=== PATIENT | male | born 1955 | race Caucasian/White ===

== ENCOUNTER 2017-09-16 15:32 | Inpatient (IN) | payer BC ==
[2017-09-16 22:37] VITALS: BMI 26.6
--- NOTE | 2017-09-16 23:44 | CP.PCM.HP ---
History of Present Illness - History of Present Illness History of Present Illness: PCP: Dr Molina Chief Complaint: right side weakness HPI: The hx is obtained from the patient and the Medicl recrds. He is a 62 years old male with hx of DM II, HTN, HLD who was admitted at [facility] on 09/12/17 and dx with Acute CVA. He is sent to the [facility] for Continued treatment and Physical Therapy. He refers no significant improvement in the right side limb weakness, still with some motor aphasia. No headache, dizziness, fever, nausea, vomits. PMH: DM II; HLD; HTN; Hypothyroidism PSH: Denies SH: Active Smoker 1PPD; No ETOH: No illegal drug use; Live with family FH: States: No known family hx Allergies: NKDA Medication: Reviewed Present on Admission - Present on Admission Any Indicators Present on Admission: No History of DVT/PE: No History of Uncontrolled Diabetes: No Urinary Catheter: No Decubitus Ulcer Present: No Review of Systems - Constitutional Constitutional: absent: Chills, Fever, Headache - EENT Eyes: Requires Corrective Lenses. absent: Floaters, Photophobia, Sees Flashes Ears: absent: Decreased Hearing, Ear Discharge Nose/Mouth/Throat: absent: Epistaxis, Nasal Congestion, Sinus Pain, Sinus Pressure - Cardiovascular Cardiovascular: absent: Chest Pain, Dyspnea, Edema, Orthopnea - Respiratory Respiratory: absent: Cough, Wheezing, Stridor - Gastrointestinal Gastrointestinal: absent: Constipation, Diarrhea, Nausea, Vomiting - Genitourinary Genitourinary: absent: Dysuria, Flank Pain, Hematuria, Urinary Frequency - Musculoskeletal Musculoskeletal: Muscle Weakness. absent: Arthralgias, Back Pain, Stiffness - Integumentary Integumentary: absent: Pruritus, Rash, Skin Ulcer, Striae, Swelling - Neurological Neurological: Focal Weakness, Weakness. absent: Confusion, Dizziness, Headaches - Psychiatric Psychiatric: absent: Anxiety, Depression, Panic Attacks - Endocrine Endocrine: absent: Palpitations, Polydipsia, Polyphagia, Polyuria - Hematologic/Lymphatic Hematologic: absent: Easy Bleeding, Easy Bruising Past Patient History - Past Social History Smoking Status: Current Some Days Smoker Chewing Tobacco Use: No Cigar Use: No Alcohol: None Drugs: Denies Home Situation {Lives}: With Family - CARDIAC Hx Hypercholesterolemia: Yes Hx Hypertension: Yes - PULMONARY Hx Respiratory Disorders: No - NEUROLOGICAL HX Cerebrovascular Accident: Yes - HEENT Hx HEENT Problems: No - RENAL Hx Chronic Kidney Disease: No - ENDOCRINE/METABOLIC Hx Diabetes Mellitus Type 2: Yes Hx Hypothyroidism: Yes - HEMATOLOGICAL/ONCOLOGICAL Hx Blood Disorders: No - INTEGUMENTARY Hx Dermatological Problems: No - MUSCULOSKELETAL/RHEUMATOLOGICAL Hx Musculoskeletal Disorders: No - GASTROINTESTINAL Hx Gastrointestinal Disorders: No - GENITOURINARY/GYNECOLOGICAL Hx Genitourinary Disorders: No - PSYCHIATRIC Hx Psychophysiologic Disorder: No - SURGICAL HISTORY Hx Surgeries: No - ANESTHESIA Hx Anesthesia: No Meds Allergies/Adverse Reactions: Allergies Allergy/AdvReac Type Severity Reaction Status Date / Time No Known Allergies Allergy Verified 09/16/17 22:36 Physical Exam - Constitutional Appears: No Acute Distress - Head Exam Head Exam: ATRAUMATIC, NORMAL INSPECTION, NORMOCEPHALIC - Eye Exam Eye Exam: EOMI, Normal appearance Pupil Exam: NORMAL ACCOMODATION, PERRL - ENT Exam ENT Exam: Mucous Membranes Moist, Normal Exam, Normal External Ear Exam - Neck Exam Neck exam: Positive for: Full Rom, Normal Inspection. Negative for: Lymphadenopathy, Tenderness - Respiratory Exam Respiratory Exam: Clear to Auscultation Bilateral. absent: Rales, Rhonchi, Wheezes - Cardiovascular Exam Cardiovascular Exam: REGULAR RHYTHM, RRR, +S1, +S2. absent: Gallop, JVD - GI/Abdominal Exam GI & Abdominal Exam: Normal Bowel Sounds, Soft. absent: Mass, Organomegaly, Tenderness - Rectal Exam Rectal Exam: Deferred - Extremities Exam Extremities exam: Positive for: normal inspection. Negative for: calf tenderness, joint swelling, pedal edema - Back Exam Back exam: NORMAL INSPECTION. absent: CVA tenderness (L), CVA tenderness (R) - Neurological Exam Neurological exam: Alert, Oriented x3 Additional comments: Awale, alert, mild motor Aphasia, Motor strngth 4/5 at the right upper and right lower extremities. - Psychiatric Exam Psychiatric exam: Normal Affect, Normal Mood - Skin Skin Exam: Dry, Intact, Normal Color, Warm Results - Imaging and Cardiology CT scan - head Status: Report reviewed by me Additional comment: 09/12/17 No Hemorrhage No signs of Acute Ischemic Infarction MRI - head Status: Report reviewed by me Additional comment: 09/12/17 Acute Left Pontine infarct Chest x-ray Status: Report reviewed by me Additional comment: 09/12/17 No infiltrates Assessment & Plan - Assessment and Plan (Free Text) Assessment: #. Acute CVA with right side weakness #. HTN #. DM II #. Hypothyroidism #. HLD Plan: 62 years old male with hx of DM II, HTN, HLD who was admitted at [facility] on 09/12/17 and dx with Acute CVA. transferred to the [facility] for Continued treatment and Physical Therapy. #. Acute CVA with right side weakness with Aphasia - Consult Dr Suarez Radiator Fitter - ASA - Statin - PT/OT #. HTN - Diovan - Norvasc - follow Vital signs #. DM II - Insulin sliding scale according to Accucheck - Metformin - Januvia to be added if needed at this time - HbA1c #. Hypothyroidism - Synthroid - TSH #. HLD - Statin - follow Lipid panel #. DVT Prophylaxis with SubQ heparin #. Code Status: Full - Date & Time Date: 09/16/17 Time: 23:44
[2017-09-17] MEDS: Levothyroxine 75 MCG TAB PO SCH (06:19)
[2017-09-17] MEDS: Insulin Lispro (humaLOG) 100 Units/ml Inj SC SCH ×4 (06:31→21:20)
[2017-09-17 06:34] LABS: HEMOGLOBIN 14.5 g/dL (12.0-18.0); MEAN CELL VOLUME 90.3 fl (80.0-94.0); MEAN CORPUSCULAR HEMOGLOBIN 30.5 pg (27.0-31.0); MEAN CORPUSCULAR HGB CONC 33.8 g/dL (33.0-37.0); RBC 4.75 Mil/uL (4.40-5.90); RED CELL DISTRIBUTION WIDTH 13.8 % (11.5-14.5); WHITE BLOOD COUNT 12.4 K/uL (4.8-10.8)
[2017-09-17 06:53] LABS: BLOOD UREA NITROGEN 13 mg/dl (9-20); CALCIUM 9.9 mg/dL (8.4-10.2); GFR AFRICAN-AMERICAN > 60; GFR NON-AFRICAN AMERICAN > 60
[2017-09-17 07:14] LABS: PARTIAL THROMBOPLASTIN TIME 32.6 Seconds (25.6-37.1); PROTHROMBIN TIME 11.4 Seconds (9.8-13.1)
[2017-09-17] MEDS: Aspirin 325 mg EC Tablets PO SCH (08:36)
[2017-09-17] MEDS ORDERED: Patient's Own Med (Valsartan [Diovan] 320 MG) PO SCH (09:00)
--- NOTE | 2017-09-17 09:04 | PSY.TMCNF ---
Nursing - Vital Signs Vital Signs (Last 8 hours): Vital Signs 09/17/17 08:36 Pulse Rate 81 Blood Pressure 126/77 - Bladder Management Bladder Pattern: Normal - Bowel Management Bowel Pattern: Normal Rehabilitation Plan - Treatment Plan Treatment Plan: Physical Therapy, Occupational Therapy, Speech, Dietary, Patient /Family Education (Evaluations to be done today. He will be seen by all disciplines)
--- NOTE | 2017-09-17 09:35 | PCM.OPOC ---
Physiatry Overall Plan of Care - Overall Plan of Care Estimated Length of Stay in Weeks: 3 Rehab Impairment: Mobility, Gait, Balance, Coordination Etiologic Diagnosis: Cerebrovascular Accident Rehab/Medical Prognosis: Good - Anticipated Interventions Physical Therapy:: Yes Occupational Therapy:: Yes Speech Therapy:: No Recreational Therapy:: Yes - Therapy Goals Bed Mobility: Supervision Ambulation: Supervision Functional Positional Changes:: Supervision - Discharge Plan Discharge Destination: Home
--- NOTE | 2017-09-17 09:37 | CP.PCM.CON ---
History of Present Illness - History of Present Illness History of Present Illness: Dr Suarez PMR consultation on Nuzhat Sparks, right hand dominant, born 1955 who has been admitted to [facility] for acute inpatient rehabilitation following a left CVA with right HP. He has some good early return with strength to the distal UE/LE. 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 Review of Systems - Constitutional Constitutional: absent: Anorexia, Chills, Excessive Sweating - EENT Eyes: absent: Change in Vision Ears: absent: Ear Discharge, Dizziness Nose/Mouth/Throat: absent: Nasal Congestion - Cardiovascular Cardiovascular: absent: Chest Pain - Respiratory Respiratory: absent: Dyspnea, Hemoptysis - Gastrointestinal Gastrointestinal: absent: Abdominal Pain, Belching - Musculoskeletal Musculoskeletal: absent: Back Pain - Integumentary Integumentary: absent: Swelling - Neurological Neurological: Weakness. absent: Abnormal Movements, Dizziness, Tremor - Psychiatric Psychiatric: absent: Anxiety Past Patient History - Past Medical History & Family History Past Medical History?: Yes - Past Social History Smoking Status: Current Some Days Smoker Chewing Tobacco Use: No Cigar Use: No Alcohol: None Drugs: Denies Home Situation {Lives}: With Family - CARDIAC Hx Hypercholesterolemia: Yes Hx Hypertension: Yes - PULMONARY Hx Respiratory Disorders: No - NEUROLOGICAL HX Cerebrovascular Accident: Yes - HEENT Hx HEENT Problems: No - RENAL Hx Chronic Kidney Disease: No - ENDOCRINE/METABOLIC Hx Diabetes Mellitus Type 2: Yes Hx Hypothyroidism: Yes - HEMATOLOGICAL/ONCOLOGICAL Hx Blood Disorders: No - INTEGUMENTARY Hx Dermatological Problems: No - MUSCULOSKELETAL/RHEUMATOLOGICAL Hx Musculoskeletal Disorders: No - GASTROINTESTINAL Hx Gastrointestinal Disorders: No - GENITOURINARY/GYNECOLOGICAL Hx Genitourinary Disorders: No - PSYCHIATRIC Hx Psychophysiologic Disorder: No - SURGICAL HISTORY Hx Surgeries: No - ANESTHESIA Hx Anesthesia: No Meds Allergies/Adverse Reactions: Allergies Allergy/AdvReac Type Severity Reaction Status Date / Time No Known Allergies Allergy Verified 09/16/17 22:36 - Medications Medications: Current Medications Amlodipine Besylate (Norvasc) 10 mg PO DAILY [facility] Last Admin: 09/17/17 08:36 Dose: 10 mg Aspirin (Ecotrin) 325 mg PO DAILY [facility] Last Admin: 09/17/17 08:36 Dose: 325 mg Heparin Sodium (Porcine) (Heparin) 5,000 units SC Q12H [facility] PRN Reason: Protocol Last Admin: 01/09/18 08:37 Dose: 5,000 units Insulin Human Lispro (Humalog) 0 units SC [facility] PRN Reason: Protocol Last Admin: 09/17/17 06:31 Dose: Not Given Levothyroxine Sodium (Synthroid) 75 mcg PO DAILY@0630 [facility] Last Admin: 09/17/17 06:19 Dose: 75 mcg Metformin HCl (Glucophage) 1,000 mg PO BID [facility] Last Admin: 09/17/17 08:36 Dose: 1,000 mg Nicotine (Nicoderm Cq) 1 patch TD DAILY [facility] Last Admin: 09/17/17 08:36 Dose: 1 patch Pravastatin Sodium (Pravachol) 20 mg PO [facility] Valsartan (Diovan) 320 mg PO DAILY [facility] Last Admin: 09/17/17 08:37 Dose: 320 mg Physical Exam - Constitutional Appears: No Acute Distress - Head Exam Head Exam: ATRAUMATIC, NORMAL INSPECTION, NORMOCEPHALIC - Eye Exam Eye Exam: EOMI - ENT Exam ENT Exam: Mucous Membranes Moist - Respiratory Exam Respiratory Exam: NORMAL BREATHING PATTERN - Cardiovascular Exam Cardiovascular Exam: REGULAR RHYTHM - GI/Abdominal Exam GI & Abdominal Exam: absent: Distended - Extremities Exam Extremities exam: Positive for: full ROM. Negative for: calf tenderness, pedal edema - Neurological Exam Neurological exam: Alert, CN II-XII Intact, Oriented x3 - Psychiatric Exam Psychiatric exam: Normal Affect, Normal Mood - Skin Skin Exam: Warm Results - Vital Signs Recent Vital Signs: Last Vital Signs Temp 97.5 F L 09/17/17 09:12 Pulse 81 09/17/17 09:12 Resp 22 09/17/17 09:12 BP 126/77 09/17/17 09:12 Pulse Ox 98 09/17/17 09:12 - Labs Result Diagrams: 09/17/17 05:20 09/17/17 05:20 Labs: Laboratory Results - last 24 hr 09/17/17 09/17/17 09/17/17 05:20 05:20 05:20 WBC 12.4 H RBC 4.75 Hgb 14.5 Hct 42.8 MCV 90.3 MCH 30.5 MCHC 33.8 RDW 13.8 Plt Count 270 PT 11.4 INR 1.0 APTT 32.6 Sodium 140 Potassium 3.7 Chloride 102 Carbon Dioxide 27 Anion Gap 15 BUN 13 Creatinine 0.7 L Est GFR ( Amer) > 60 Est GFR (Non-Af Amer) > 60 POC Glucose (mg/dL) Random Glucose 183 H Calcium 9.9 TSH 3rd Generation 3.53 09/17/17 06:18 WBC RBC Hgb Hct MCV MCH MCHC RDW Plt Count PT INR APTT Sodium Potassium Chloride Carbon Dioxide Anion Gap BUN Creatinine Est GFR ( Amer) Est GFR (Non-Af Amer) POC Glucose (mg/dL) 150 H Random Glucose Calcium TSH 3rd Generation Assessment & Plan - Assessment and Plan (Free Text) Assessment: PT/OT to continue to help increase functional independence Team conference for d/c planning Pain: controlled Vascular: no evidence of DVT GI: No evidence of constipation or diarrhea Patient is an excellent acute rehabilitation candidate and will have focused PT , OT and recreational therapy to help facilitate a safe and appropriate d/c plan Impairment code 01.2
[2017-09-17] MEDS: Pravastatin Sodium 20 MG TAB PO SCH (21:19)
[2017-09-17] MEDS ORDERED: SIMVASTATIN 10 MG PO SCH (22:00)
[2017-09-18] MEDS: Levothyroxine 75 MCG TAB PO SCH (06:05)
[2017-09-18] MEDS: Insulin Lispro (humaLOG) 100 Units/ml Inj SC SCH ×4 (06:31→21:43)
[2017-09-18] MEDS: Aspirin 325 mg EC Tablets PO SCH (08:09)
--- NOTE | 2017-09-18 10:50 | CP.PCM.PN ---
Subjective - Date & Time of Evaluation Date of Evaluation: 09/18/17 Time of Evaluation: 10:48 - Subjective Subjective: TOLERATING THERAPIES WELL NO CP SOB CALF TENDERNESS NO COMPLAINTS THIS AM HD STABLE NAD Objective - Vital Signs/Intake and Output Vital Signs (last 24 hours): Temp Pulse Resp BP Pulse Ox 98.2 F 74 20 159/69 H 98 09/18/17 08:31 09/18/17 08:31 09/18/17 08:31 09/18/17 08:31 09/18/17 08:31 Constitutional- cooperative, awake, alert. Head- NCAT, PERRL Eye- PERRL, normal accommodation ENT- normal exam, MMM. Neck- normal inspection, supple, no JVD Respiratory- CTAB, no wheezes rales rhonchi Cardiovascular- RRR, +S1, +S2 no MRG GI/Abdominal- normal bowel sounds, soft Skin- warm, dry Extremities Exam- normal capillary refill, normal inspection Neurological Exam- alert, oriented Psych- normal mood, normal affect - Medications Medications: Current Medications Amlodipine Besylate (Norvasc) 10 mg PO DAILY [facility] Last Admin: 09/18/17 08:10 Dose: 10 mg Aspirin (Ecotrin) 325 mg PO DAILY [facility] Last Admin: 09/18/17 08:09 Dose: 325 mg Heparin Sodium (Porcine) (Heparin) 5,000 units SC Q12H [facility] PRN Reason: Protocol Last Admin: 09/18/17 08:09 Dose: 5,000 units Insulin Human Lispro (Humalog) 0 units SC ACHS [facility] PRN Reason: Protocol Last Admin: 09/18/17 06:31 Dose: Not Given Levothyroxine Sodium (Synthroid) 75 mcg PO DAILY@0630 [facility] Last Admin: 09/18/17 06:05 Dose: 75 mcg Metformin HCl (Glucophage) 1,000 mg PO BID [facility] Last Admin: 09/18/17 08:09 Dose: 1,000 mg Nicotine (Nicoderm Cq) 1 patch TD DAILY [facility] Last Admin: 09/18/17 08:09 Dose: 1 patch Pravastatin Sodium (Pravachol) 20 mg PO HS [facility] Last Admin: 09/17/17 21:19 Dose: 20 mg Valsartan (Diovan) 320 mg PO DAILY [facility] Last Admin: 09/18/17 08:09 Dose: 320 mg - Labs Labs: 09/17/17 05:20 09/17/17 05:20 PT 11.4 Seconds (9.8-13.1) 09/17/17 05:20 INR 1.0 (0.9-1.2) 09/17/17 05:20 APTT 32.6 Seconds (25.6-37.1) 09/17/17 05:20 Assessment and Plan - Assessment and Plan (Free Text) Plan: 62 years old male with hx of DM II, HTN, HLD who was admitted at [facility] on 09/12/17 and dx with Acute CVA. transferred to the [facility] for Continued treatment and Physical Therapy. #. Acute CVA with right side weakness with Aphasia - Consult Dr Suarez Manager Culinary - ASA - Statin - PT/OT #. HTN - Diovan - Norvasc - follow Vital signs #. DM II - Insulin sliding scale according to Accucheck - Metformin - Januvia ADDED - HbA1c #. Hypothyroidism - Synthroid - TSH #. HLD - Statin - follow Lipid panel #. DVT Prophylaxis with SubQ heparin #. Code Status: Full
[2017-09-18] MEDS: Pravastatin Sodium 20 MG TAB PO SCH (21:42)
[2017-09-19] MEDS: Levothyroxine 75 MCG TAB PO SCH (06:30)
[2017-09-19] MEDS: Insulin Lispro (humaLOG) 100 Units/ml Inj SC SCH ×4 (06:33→21:54)
[2017-09-19] MEDS: Aspirin 325 mg EC Tablets PO SCH (08:36)
[2017-09-19] MEDS: Pravastatin Sodium 20 MG TAB PO SCH (21:53)
[2017-09-20] MEDS: Levothyroxine 75 MCG TAB PO SCH (06:46)
[2017-09-20] MEDS: Insulin Lispro (humaLOG) 100 Units/ml Inj SC SCH ×4 (06:46→21:00)
[2017-09-20] MEDS: Aspirin 325 mg EC Tablets PO SCH (08:55)
--- NOTE | 2017-09-20 12:16 | CP.PCM.CON ---
History of Present Illness - History of Present Illness History of Present Illness: Pt is a 62 year old [place] male admitte to [facility] and referred to the automatic typewriter inspector for evaluation. Med history postive for CVA, HTN, DM, thyroid. See medical record for complete medical history and medication list. Social History : pt lives with his of 25+ years and child age 21. pt has two other children, both out of the home. Pt reported positive relationsships with family members. Pt denied family tensions. 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 Pt denied a psych history and denied a history of alc/sub abuse. Pt on interview discussed the stress/anxiety with the CVA due to financial and work pressures/questions. He discussed applying for disability, potential move back to [place] and other solutions to current issues. MSE: Pt alert, oriented x2, relevant/coherent, no psychosis, affect constricted , mood anxious, no si no hi ideation. Dx: Adjustment Dx with anxiety plan: Continued Sup therapy Past Patient History - Past Medical History & Family History Past Medical History?: Yes - Past Social History Smoking Status: Current Some Days Smoker Chewing Tobacco Use: No Cigar Use: No Alcohol: None Drugs: Denies Home Situation {Lives}: With Family - CARDIAC Hx Hypertension: Yes - PULMONARY Hx Chronic Obstructive Pulmonary Disease (COPD): No - NEUROLOGICAL HX Cerebrovascular Accident: Yes - HEENT Hx HEENT Problems: No - RENAL Hx Renal Failure: No - ENDOCRINE/METABOLIC Hx Diabetes Mellitus Type 2: Yes Hx Hypothyroidism: Yes - HEMATOLOGICAL/ONCOLOGICAL Hx Blood Disorders: No - INTEGUMENTARY Hx Dermatological Problems: No - MUSCULOSKELETAL/RHEUMATOLOGICAL Hx Arthritis: No Hx Rheumatoid Arthritis: No - GASTROINTESTINAL Hx Gastrointestinal Disorders: No - GENITOURINARY/GYNECOLOGICAL Hx Genitourinary Disorders: No - PSYCHIATRIC Hx Psychophysiologic Disorder: No - SURGICAL HISTORY Hx Surgeries: No - ANESTHESIA Hx Anesthesia: No Meds Allergies/Adverse Reactions: Allergies Allergy/AdvReac Type Severity Reaction Status Date / Time No Known Allergies Allergy Verified 09/16/17 22:36 - Medications Medications: Current Medications Amlodipine Besylate (Norvasc) 10 mg PO DAILY [facility] Last Admin: 09/20/17 08:56 Dose: Not Given Aspirin (Ecotrin) 325 mg PO DAILY [facility] Last Admin: 09/20/17 08:55 Dose: 325 mg Heparin Sodium (Porcine) (Heparin) 5,000 units SC Q12H [facility] PRN Reason: Protocol Last Admin: 09/20/17 08:55 Dose: 5,000 units Insulin Human Lispro (Humalog) 0 units SC ACHS [facility] PRN Reason: Protocol Last Admin: 09/20/17 06:46 Dose: Not Given Levothyroxine Sodium (Synthroid) 75 mcg PO DAILY@0630 [facility] Last Admin: 09/20/17 06:46 Dose: 75 mcg Magnesium Hydroxide (Milk Of Magnesia) 15 ml PO QID PRN PRN Reason: Constipation Metformin HCl (Glucophage) 1,000 mg PO BID [facility] Last Admin: 09/20/17 08:55 Dose: 1,000 mg Nicotine (Nicoderm Cq) 1 patch TD DAILY [facility] Last Admin: 09/20/17 08:57 Dose: 1 patch Pravastatin Sodium (Pravachol) 20 mg PO HS [facility] Last Admin: 09/19/17 21:53 Dose: 20 mg Sitagliptin Phosphate (Januvia) 100 mg PO DAILY [facility] Last Admin: 09/20/17 08:55 Dose: 100 mg Valsartan (Diovan) 320 mg PO DAILY [facility] Last Admin: 09/19/17 08:36 Dose: 320 mg Results - Vital Signs Recent Vital Signs: Last Vital Signs Temp 98.1 F 09/20/17 07:46 Pulse 77 09/20/17 08:56 Resp 18 09/20/17 07:46 BP 110/67 09/20/17 08:56 Pulse Ox 95 09/20/17 07:46 - Labs Result Diagrams: 09/17/17 05:20 09/17/17 05:20 Labs: Laboratory Results - last 24 hr 09/19/17 09/19/17 09/19/17 11:29 16:45 20:48 POC Glucose (mg/dL) 156 H 117 H 175 H 09/20/17 06:40 POC Glucose (mg/dL) 137 H
--- NOTE | 2017-09-20 13:40 | CP.PCM.PN ---
Subjective - Date & Time of Evaluation Date of Evaluation: 09/20/17 Time of Evaluation: 11:00 - Subjective Subjective: Patient seen and examined at bedside. No new complaints. Tolerating therapies well. No complaints today. Cheerful mood. Objective - Vital Signs/Intake and Output Vital Signs (last 24 hours): Temp Pulse Resp BP Pulse Ox 98.1 F 77 18 110/67 95 09/20/17 07:46 09/20/17 08:56 09/20/17 07:46 09/20/17 08:56 09/20/17 07:46 - Medications Medications: Current Medications Amlodipine Besylate (Norvasc) 10 mg PO DAILY [facility] Last Admin: 09/20/17 08:56 Dose: Not Given Aspirin (Ecotrin) 325 mg PO DAILY [facility] Last Admin: 09/20/17 08:55 Dose: 325 mg Heparin Sodium (Porcine) (Heparin) 5,000 units SC Q12H [facility] PRN Reason: Protocol Last Admin: 09/20/17 08:55 Dose: 5,000 units Insulin Human Lispro (Humalog) 0 units SC ACHS [facility] PRN Reason: Protocol Last Admin: 09/20/17 06:46 Dose: Not Given Levothyroxine Sodium (Synthroid) 75 mcg PO DAILY@0630 [facility] Last Admin: 09/20/17 06:46 Dose: 75 mcg Magnesium Hydroxide (Milk Of Magnesia) 15 ml PO QID PRN PRN Reason: Constipation Metformin HCl (Glucophage) 1,000 mg PO BID [facility] Last Admin: 09/20/17 08:55 Dose: 1,000 mg Nicotine (Nicoderm Cq) 1 patch TD DAILY [facility] Last Admin: 09/20/17 08:57 Dose: 1 patch Pravastatin Sodium (Pravachol) 20 mg PO HS [facility] Last Admin: 09/19/17 21:53 Dose: 20 mg Sitagliptin Phosphate (Januvia) 100 mg PO DAILY [facility] Last Admin: 09/20/17 08:55 Dose: 100 mg Valsartan (Diovan) 320 mg PO DAILY [facility] Last Admin: 09/19/17 08:36 Dose: 320 mg - Labs Labs: 09/17/17 05:20 09/17/17 05:20 PT 11.4 Seconds (9.8-13.1) 09/17/17 05:20 INR 1.0 (0.9-1.2) 09/17/17 05:20 APTT 32.6 Seconds (25.6-37.1) 09/17/17 05:20 - Additional Findings Additional findings: Constitutional- cooperative, awake, alert. Head- NCAT, PERRL Eye- PERRL, normal accommodation ENT- normal exam, MMM. Neck- normal inspection, supple, no JVD Respiratory- CTAB, no wheezes rales rhonchi Cardiovascular- RRR, +S1, +S2 no MRG GI/Abdominal- normal bowel sounds, soft Skin- warm, dry Extremities Exam- normal capillary refill, normal inspection Neurological Exam- alert, oriented Psych- normal mood, normal affect Assessment and Plan - Assessment and Plan (Free Text) Plan: 62 years old male with hx of DM II, HTN, HLD who was admitted at [facility] on 09/12/17 and dx with Acute CVA. transferred to the [facility] Unit for Continued treatment and Physical Therapy. #. 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 HTN - Diovan - Norvasc - follow Vital signs #. DM II - Insulin sliding scale according to Accucheck - Metformin - Januvia ADDED - HbA1c #. Hypothyroidism - Synthroid - TSH #. HLD - Statin - follow Lipid panel #. DVT Prophylaxis with SubQ heparin #. Code Status: Full
--- NOTE | 2017-09-20 16:34 | CP.PCM.PN ---
Subjective - Date & Time of Evaluation Date of Evaluation: 09/20/17 Time of Evaluation: 16:33 - Subjective Subjective: Patient seen in room doing ok in good spirits ambulating 100' with a RW denies pain making daily gains continue current care Objective - Vital Signs/Intake and Output Vital Signs (last 24 hours): Temp Pulse Resp BP Pulse Ox 98.1 F 77 18 110/67 95 09/20/17 07:46 09/20/17 08:56 09/20/17 07:46 09/20/17 08:56 09/20/17 07:46 - Medications Medications: Current Medications Amlodipine Besylate (Norvasc) 10 mg PO DAILY [facility] Last Admin: 09/20/17 08:56 Dose: Not Given Aspirin (Ecotrin) 325 mg PO DAILY [facility] Last Admin: 09/20/17 08:55 Dose: 325 mg Heparin Sodium (Porcine) (Heparin) 5,000 units SC Q12H [facility] PRN Reason: Protocol Last Admin: 09/20/17 08:55 Dose: 5,000 units Insulin Human Lispro (Humalog) 0 units SC ACHS [facility] PRN Reason: Protocol Last Admin: 09/20/17 06:46 Dose: Not Given Levothyroxine Sodium (Synthroid) 75 mcg PO DAILY@0630 [facility] Last Admin: 09/20/17 06:46 Dose: 75 mcg Magnesium Hydroxide (Milk Of Magnesia) 15 ml PO QID PRN PRN Reason: Constipation Metformin HCl (Glucophage) 1,000 mg PO BID [facility] Last Admin: 09/20/17 08:55 Dose: 1,000 mg Nicotine (Nicoderm Cq) 1 patch TD DAILY [facility] Last Admin: 09/20/17 08:57 Dose: 1 patch Pravastatin Sodium (Pravachol) 20 mg PO HS [facility] Last Admin: 09/19/17 21:53 Dose: 20 mg Sitagliptin Phosphate (Januvia) 100 mg PO DAILY [facility] Last Admin: 09/20/17 08:55 Dose: 100 mg Valsartan (Diovan) 320 mg PO DAILY [facility] Last Admin: 09/19/17 08:36 Dose: 320 mg - Labs Labs: 09/17/17 05:20 09/17/17 05:20 PT 11.4 Seconds (9.8-13.1) 09/17/17 05:20 INR 1.0 (0.9-1.2) 09/17/17 05:20 APTT 32.6 Seconds (25.6-37.1) 09/17/17 05:20
[2017-09-20] MEDS: Pravastatin Sodium 20 MG TAB PO SCH (21:09)
[2017-09-21] MEDS: Levothyroxine 75 MCG TAB PO SCH (06:45)
[2017-09-21] MEDS: Insulin Lispro (humaLOG) 100 Units/ml Inj SC SCH ×4 (07:06→21:28)
[2017-09-21 08:17] LABS: HEMOGLOBIN 14.1 g/dL (12.0-18.0); MEAN CELL VOLUME 91.5 fl (80.0-94.0); MEAN CORPUSCULAR HEMOGLOBIN 30.6 pg (27.0-31.0); MEAN CORPUSCULAR HGB CONC 33.5 g/dL (33.0-37.0); RBC 4.6 Mil/uL (4.40-5.90); RED CELL DISTRIBUTION WIDTH 14.2 % (11.5-14.5); WHITE BLOOD COUNT 11.7 K/uL (4.8-10.8)
[2017-09-21 08:41] LABS: BLOOD UREA NITROGEN 15 mg/dl (9-20); CALCIUM 9.5 mg/dL (8.4-10.2); GFR AFRICAN-AMERICAN > 60; GFR NON-AFRICAN AMERICAN > 60
[2017-09-21] MEDS: Aspirin 325 mg EC Tablets PO SCH (08:46)
[2017-09-21] MEDS: Pravastatin Sodium 20 MG TAB PO SCH (21:27)
[2017-09-22] MEDS: Levothyroxine 75 MCG TAB PO SCH (06:15)
[2017-09-22] MEDS: Insulin Lispro (humaLOG) 100 Units/ml Inj SC SCH ×4 (06:32→21:39)
[2017-09-22] MEDS: Aspirin 325 mg EC Tablets PO SCH (08:09)
[2017-09-22] MEDS: Magnesium Hydroxide Susp 30 ml UD PO PRN (12:34)
[2017-09-22] MEDS: Bisacodyl 5mg EC Tab PO SCH (21:38)
[2017-09-22] MEDS: Pravastatin Sodium 20 MG TAB PO SCH (21:39)
[2017-09-23] MEDS: Levothyroxine 75 MCG TAB PO SCH (06:50)
[2017-09-23] MEDS: Insulin Lispro (humaLOG) 100 Units/ml Inj SC SCH ×4 (06:51→21:55)
[2017-09-23] MEDS: Aspirin 325 mg EC Tablets PO SCH (08:39)
--- NOTE | 2017-09-23 11:20 | CP.PCM.PN ---
Subjective - Date & Time of Evaluation Date of Evaluation: 09/23/17 Time of Evaluation: 11:19 - Subjective Subjective: tolerating PT well no complaints HD STABLE NAD no cp sob calf tenderness Objective - Vital Signs/Intake and Output Vital Signs (last 24 hours): Temp Pulse Resp BP Pulse Ox 96.6 F L 71 18 131/78 99 09/23/17 08:08 09/23/17 08:40 09/23/17 08:08 09/23/17 08:40 09/23/17 08:08 - Medications Medications: Current Medications Amlodipine Besylate (Norvasc) 10 mg PO DAILY [facility] Last Admin: 09/23/17 08:40 Dose: 10 mg Aspirin (Ecotrin) 325 mg PO DAILY [facility] Last Admin: 09/23/17 08:39 Dose: 325 mg Bisacodyl (Dulcolax) 5 mg PO HS [facility] Last Admin: 09/22/17 21:38 Dose: 5 mg Docusate Sodium (Colace) 100 mg PO BID [facility] Last Admin: 09/23/17 08:38 Dose: 100 mg Heparin Sodium (Porcine) (Heparin) 5,000 units SC Q12H [facility] PRN Reason: Protocol Last Admin: 09/23/17 08:38 Dose: 5,000 units Insulin Human Lispro (Humalog) 0 units SC ACHS [facility] PRN Reason: Protocol Last Admin: 09/23/17 06:51 Dose: 3 units Levothyroxine Sodium (Synthroid) 75 mcg PO DAILY@0630 [facility] Last Admin: 09/23/17 06:50 Dose: 75 mcg Magnesium Hydroxide (Milk Of Magnesia) 15 ml PO QID PRN PRN Reason: Constipation Last Admin: 09/22/17 12:34 Dose: 15 ml Metformin HCl (Glucophage) 1,000 mg PO BID [facility] Last Admin: 09/23/17 08:39 Dose: 1,000 mg Nicotine (Nicoderm Cq) 1 patch TD DAILY [facility] Last Admin: 09/23/17 08:40 Dose: 1 patch Pravastatin Sodium (Pravachol) 20 mg PO HS [facility] Last Admin: 09/22/17 21:39 Dose: 20 mg Sitagliptin Phosphate (Januvia) 100 mg PO DAILY [facility] Last Admin: 09/23/17 08:39 Dose: 100 mg Valsartan (Diovan) 320 mg PO DAILY [facility] Last Admin: 09/23/17 08:39 Dose: 320 mg - Labs Labs: 09/21/17 08:03 09/21/17 08:03 PT 11.4 Seconds (9.8-13.1) 09/17/17 05:20 INR 1.0 (0.9-1.2) 09/17/17 05:20 APTT 32.6 Seconds (25.6-37.1) 09/17/17 05:20 - Additional Findings Additional findings: Constitutional- cooperative, awake, alert. Head- NCAT, PERRL Eye- PERRL, normal accommodation ENT- normal exam, MMM. Neck- normal inspection, supple, no JVD Respiratory- CTAB, no wheezes rales rhonchi Cardiovascular- RRR, +S1, +S2 no MRG GI/Abdominal- normal bowel sounds, soft Skin- warm, dry Extremities Exam- normal capillary refill, normal inspection Neurological Exam- alert, oriented Psych- normal mood, normal affect Assessment and Plan - Assessment and Plan (Free Text) Plan: 62 years old male with hx of DM II, HTN, HLD who was admitted at [facility] on 09/12/17 and dx with Acute CVA. transferred to the [facility] for Continued treatment and Physical Therapy. #. Acute CVA with right side weakness with Aphasia - Consult Dr Suarez Smoking Tobacco Packer Hand - ASA - Statin - PT/OT #. HTN - Diovan - Norvasc - follow Vital signs #. DM II - Insulin sliding scale according to Accucheck - Metformin - Januvia ADDED - HbA1c #. Hypothyroidism - Synthroid - TSH #. HLD - Statin - follow Lipid panel #. DVT Prophylaxis with SubQ heparin #. Code Status: Full
[2017-09-23] MEDS: Pravastatin Sodium 20 MG TAB PO SCH (21:54)
[2017-09-23] MEDS: Bisacodyl 5mg EC Tab PO SCH (21:54)
[2017-09-24] MEDS: Levothyroxine 75 MCG TAB PO SCH (06:56)
[2017-09-24] MEDS: Insulin Lispro (humaLOG) 100 Units/ml Inj SC SCH ×4 (06:57→21:37)
[2017-09-24] MEDS: Aspirin 325 mg EC Tablets PO SCH (08:55)
--- NOTE | 2017-09-24 13:14 | PSY.TMCNF ---
Nursing - Vital Signs Vital Signs (Last 8 hours): Vital Signs 09/24/17 09/24/17 09/24/17 08:56 09:00 09:24 Temperature 96.4 F L 96.4 F L Pulse Rate 75 75 75 Respiratory 20 20 Rate Blood Pressure 128/72 128/72 128/72 O2 Sat by Pulse 98 Oximetry Pain: 0 - Precautions: Precautions: Fall Prevention, Aspiration - Medications/Other Issues Comment: Safety - Consults Comment: Dr. Suarez, Dr. Lennon - Toileting Toileting: Contact Guard - Bladder Management Bladder Pattern: Normal Voiding Method: Toilet - Bowel Management Bowel Pattern: Normal Comment: on colace, dulcolx Bowel Management: Contact Guard - Transfers Transfers: Contact Guard - ADL's ADL's: Contact Guard - Pain Management Comments: Denies pain - Patient/Family Teaching Comments: Safety, Post CVA care. - Goals/Time Frame Comments: Per multidisciplinary team. - Provider Provider: Igor Erwin Physical Therapy - Bed Mobility Bed Mobility: Contact Guard - Transfers Wheelchair to Mat: Minimal Assistance Sit to Stand: Verbal Cues, Contact Guard - Ambulation Level of Assistance: Verbal Cues, Contact Guard Distance (ft.): 150 Assistive Devices: Rolling Walker - Stair Negotiation Stairs: Level of Assistance: Verbal Cues, Contact Guard, Minimal Assistance Number of Stairs: 12 Handrails: Right Stairs: Assistive Devices: Right Handrail - Standing Balance Static Stand: Contact Guard Assist Dynamic Stand: Minimal Assistance - Pain Pain (assessed during therapy session): 0 Comment: n/a - Insight/Carryover Insight/Carryover: Fair - Patient/Family Education Comment: Pt education provided for safety awareness and proper techniques during functional mobiltiy, transfer training and LB self care with fair carryover. -completed caregiver training addressing transfers. mobility and LB self care. Reccommended 24/7 CGA for transfers , mobility, and LB self care using DME. Pt's verbalized understanding. - Assessment/Plan Assessment: Pt is actively participating in OT tx sessions mainly focusing on R UE strengthening exercises, balance , endurance activities, self care , feeding/grooming and functional mobility and transfer training. Pt currently requires CGA for transfers mobility and lb self care . Pt continues to require cues for pacing and safety throughout sessions due to poor safety awareness. Reccommended 24/7 CGA for transfers , mobility, and LB self care using DME. Pt' s verbalized understanding. - Goals Timeframe: 7 days Goals: supervision for transfers, mobility and self care - Provider License Number: [id number] Occupational Therapy - Arousal/Attention/Orientation Patient Orientation: Person, Place, Time, Appropriate to Age, Appropriate to Situation - ADL/IADL Self Feeding: Verbal Cues, Set-up Help Grooming: Verbal Cues, Set-up Help Bathing-Upper Extremity: Supervision, Verbal Cues, Set-up Help Bathing-Lower Extremity: Minimal Assistance Dressing-Upper Extremity: Supervision, Verbal Cues Dressing-Lower Extremity: Contact Guard, Minimal Assistance Homemaking: Maximum Assistance Comment: Patient uses a rolling walker and benefits from verbal cues for pacing and safety awareness. pt is very impulsive. - Sitting Balance Static Sitting: Independent without upper extremity support Dynamic Sitting: Reaches across midline, Reaches out of base of support, Requires supervision - Transfers Wheelchair to Bed Transfers: Contact Guard Toilet Transfers: Contact Guard Tub Transfers: Not Applicable - Wheelchair Management Level of Assistance: Verbal Cues, Minimal Assistance Distance (ft.): 100 - Upper Extremity Status Right Upper Extremity Comment: AROM is slightly impaired. strength 3-/5 Left Upper Extremity Comment: WFL - Pain Pain (assessed during therapy session): 0 Comment: n/a - Insight/Carryover Insight/Carryover: Fair - Patient/Family Education Comment: Pt education provided for safety awareness and proper techniques during functional mobiltiy, transfer training and LB self care with fair carryover. -completed caregiver training addressing transfers. mobility and LB self care. Reccommended 24/7 CGA for transfers , mobility, and LB self care using DME. Pt's verbalized understanding. - Assessment/Plan Assessment: Pt is actively participating in OT tx sessions mainly focusing on R UE strengthening exercises, balance , endurance activities, self care , feeding/grooming and functional mobility and transfer training. Pt currently requires CGA for transfers mobility and lb self care . Pt continues to require cues for pacing and safety throughout sessions due to poor safety awareness. Reccommended 24/7 CGA for transfers , mobility, and LB self care using DME. Pt' s verbalized understanding. - Goals Timeframe: 7 days Goals: supervision for transfers, mobility and self care - Provider Therapist: MC Guzman/L Speech Therapy - Consult Information Patient on Program: Yes Medical Diagnosis: CVA Treatment Diagnosis: -moderate dysarthria. -moderate cognitive linguistic deficits - Assessment Problem Solving Impairment: Moderate Memory Impairment: Moderate Speech/Articulation Impairment: Moderate - Plan Assessment: Pt is actively participating in OT tx sessions mainly focusing on R UE strengthening exercises, balance , endurance activities, self care , feeding/grooming and functional mobility and transfer training. Pt currently requires CGA for transfers mobility and lb self care . Pt continues to require cues for pacing and safety throughout sessions due to poor safety awareness. Reccommended 24/7 CGA for transfers , mobility, and LB self care using DME. Pt' s verbalized understanding. - Provider Therapist: Kaykay Gates License Number: [id number] Recreational Therapy - Participation Participation: Monitors His/Her Own Leisure Time - Attendance Attendance: Daily - Activities Leisure Activities: Television - Socialization Level of Socialization: Initiates/interacts freely with care givers and peer - Assessment Assessment/Plan: Pt is actively participating in OT tx sessions mainly focusing on R UE strengthening exercises, balance , endurance activities, self care , feeding/grooming and functional mobility and transfer training. Pt currently requires CGA for transfers mobility and lb self care . Pt continues to require cues for pacing and safety throughout sessions due to poor safety awareness. Reccommended 24/7 CGA for transfers , mobility, and LB self care using DME. Pt's verbalized understanding. - Provider Therapist: Jeannine Manley, CLINICAL DATA COORDINATOR #[id number] Nutrition - Current Diet Current Diet/ Supplement/ Feedings: Moderate consistent CHO, heart healthy, Kosher, No pork diet - Appetite Percent Meal Consumed: 75-100% - Comments Comments: Safety, Post CVA care. - Assessment/Goals/Time Frame Assessment/Goals/Time Frame: Safety - Provider Provider: Ayesha Santoro MS, RD Rehabilitation Plan - Treatment Plan Treatment Plan: Physical Therapy, Occupational Therapy, Speech, Dietary, Patient /Family Education - Discharge Plan Estimated Date of Discharge: 09/28/17 Discharge to: Subacute
--- NOTE | 2017-09-24 13:28 | CP.PCM.PN ---
Subjective - Date & Time of Evaluation Date of Evaluation: 09/24/17 Time of Evaluation: 13:27 - Subjective Subjective: Patient seen in room denies sob/cp not good insight into realistic d/c plans and what is safe will have to have family meeting at this point he needs 24 hour supervision I am recommending KRISTINA at this point if this cannot be provided Objective - Vital Signs/Intake and Output Vital Signs (last 24 hours): Temp Pulse Resp BP Pulse Ox 96.4 F L 75 20 128/72 98 09/24/17 09:24 09/24/17 09:24 09/24/17 09:24 09/24/17 09:24 09/24/17 09:24 - Medications Medications: Current Medications Amlodipine Besylate (Norvasc) 10 mg PO DAILY [facility] Last Admin: 09/24/17 08:56 Dose: 10 mg Aspirin (Ecotrin) 325 mg PO DAILY [facility] Last Admin: 09/24/17 08:55 Dose: 325 mg Bisacodyl (Dulcolax) 5 mg PO HS [facility] Last Admin: 09/23/17 21:54 Dose: 5 mg Docusate Sodium (Colace) 100 mg PO BID [facility] Last Admin: 09/24/17 08:54 Dose: 100 mg Heparin Sodium (Porcine) (Heparin) 5,000 units SC Q12H [facility] PRN Reason: Protocol Last Admin: 09/24/17 08:54 Dose: 5,000 units Insulin Human Lispro (Humalog) 0 units SC ACHS [facility] PRN Reason: Protocol Last Admin: 09/24/17 12:48 Dose: 2 units Levothyroxine Sodium (Synthroid) 75 mcg PO DAILY@0630 [facility] Last Admin: 09/24/17 06:56 Dose: 75 mcg Magnesium Hydroxide (Milk Of Magnesia) 15 ml PO QID PRN PRN Reason: Constipation Last Admin: 09/22/17 12:34 Dose: 15 ml Metformin HCl (Glucophage) 1,000 mg PO BID [facility] Last Admin: 09/24/17 08:55 Dose: 1,000 mg Nicotine (Nicoderm Cq) 1 patch TD DAILY [facility] Last Admin: 09/24/17 08:56 Dose: 1 patch Pravastatin Sodium (Pravachol) 20 mg PO HS [facility] Last Admin: 09/23/17 21:54 Dose: 20 mg Sitagliptin Phosphate (Januvia) 100 mg PO DAILY [facility] Last Admin: 09/24/17 08:56 Dose: 100 mg Valsartan (Diovan) 320 mg PO DAILY [facility] Last Admin: 09/24/17 08:55 Dose: 320 mg - Labs Labs: 09/21/17 08:03 09/21/17 08:03 PT 11.4 Seconds (9.8-13.1) 09/17/17 05:20 INR 1.0 (0.9-1.2) 09/17/17 05:20 APTT 32.6 Seconds (25.6-37.1) 09/17/17 05:20
[2017-09-24] MEDS: Pravastatin Sodium 20 MG TAB PO SCH (21:40)
[2017-09-24] MEDS: Bisacodyl 5mg EC Tab PO SCH (21:41)
[2017-09-25] MEDS: Levothyroxine 75 MCG TAB PO SCH (06:26)
[2017-09-25] MEDS: Insulin Lispro (humaLOG) 100 Units/ml Inj SC SCH ×4 (06:30→21:30)
[2017-09-25] MEDS: Aspirin 325 mg EC Tablets PO SCH (09:02)
--- NOTE | 2017-09-25 15:08 | CP.PCM.PN ---
Subjective - Date & Time of Evaluation Date of Evaluation: 09/25/17 Time of Evaluation: 11:50 - Subjective Subjective: Pt seen and examined. Denied any complaint. Objective - Vital Signs/Intake and Output Vital Signs (last 24 hours): Temp Pulse Resp BP Pulse Ox 97.3 F L 69 21 130/69 100 09/25/17 10:00 09/25/17 10:00 09/25/17 10:00 09/25/17 10:00 09/25/17 10:00 - Medications Medications: Current Medications Amlodipine Besylate (Norvasc) 10 mg PO DAILY [facility] Last Admin: 09/25/17 09:01 Dose: 10 mg Aspirin (Ecotrin) 325 mg PO DAILY [facility] Last Admin: 09/25/17 09:02 Dose: 325 mg Bisacodyl (Dulcolax) 5 mg PO HS [facility] Last Admin: 09/24/17 21:41 Dose: 5 mg Docusate Sodium (Colace) 100 mg PO BID [facility] Last Admin: 09/25/17 09:02 Dose: 100 mg Heparin Sodium (Porcine) (Heparin) 5,000 units SC Q12H [facility] PRN Reason: Protocol Last Admin: 09/25/17 09:05 Dose: 5,000 units Insulin Human Lispro (Humalog) 0 units SC ACHS [facility] PRN Reason: Protocol Last Admin: 09/25/17 12:00 Dose: Not Given Levothyroxine Sodium (Synthroid) 75 mcg PO DAILY@0630 [facility] Last Admin: 09/25/17 06:26 Dose: 75 mcg Magnesium Hydroxide (Milk Of Magnesia) 15 ml PO QID PRN PRN Reason: Constipation Last Admin: 09/22/17 12:34 Dose: 15 ml Metformin HCl (Glucophage) 1,000 mg PO BID [facility] Last Admin: 09/25/17 09:02 Dose: 1,000 mg Nicotine (Nicoderm Cq) 1 patch TD DAILY [facility] Last Admin: 09/25/17 09:07 Dose: 1 patch Pravastatin Sodium (Pravachol) 20 mg PO HS [facility] Last Admin: 09/24/17 21:40 Dose: 20 mg Sitagliptin Phosphate (Januvia) 100 mg PO DAILY [facility] Last Admin: 09/25/17 09:02 Dose: 100 mg Valsartan (Diovan) 320 mg PO DAILY [facility] Last Admin: 09/25/17 09:02 Dose: 320 mg - Labs Labs: 09/21/17 08:03 09/21/17 08:03 PT 11.4 Seconds (9.8-13.1) 09/17/17 05:20 INR 1.0 (0.9-1.2) 09/17/17 05:20 APTT 32.6 Seconds (25.6-37.1) 09/17/17 05:20 - Constitutional Appears: No Acute Distress - Head Exam Head Exam: ATRAUMATIC - Eye Exam Eye Exam: absent: Scleral icterus - ENT Exam ENT Exam: Mucous Membranes Moist - Neck Exam Neck Exam: absent: Meningismus - Respiratory Exam Respiratory Exam: absent: Rhonchi, Wheezes, Respiratory Distress - Cardiovascular Exam Cardiovascular Exam: REGULAR RHYTHM, +S1, +S2 - GI/Abdominal Exam GI & Abdominal Exam: Soft. absent: Tenderness - Rectal Exam Rectal Exam: Deferred - Extremities Exam Extremities Exam: absent: Tenderness - Neurological Exam Neurological Exam: Alert, Oriented x3 - Psychiatric Exam Psychiatric exam: Normal Affect - Skin Skin Exam: Dry, Intact Assessment and Plan - Assessment and Plan (Free Text) Assessment: 62 yo male with history of DMII, HTN and HLD was admitted at [facility] on 09/12/17 because of right sided weakness and aphasia secondary to acute CVA. He was transferred to Acute Rehab in [facility] for continued management and further therapy. 1. CVA Dr Suarez on physiatry consult continue PT/OT/ST continue ASA and statin 2. HTN BP stable continue Diovan and Norvasc 3. DMII BS relatively controlled continue accuchek with coverage continue Metformin and Januvia HgA1C: 7.6 4. Hypothyroidism TSH: 3.53 continue Synthroid 5. DVT prophylaxis continue SQ Heparin
--- NOTE | 2017-09-25 16:03 | CP.PCM.PN ---
Subjective - Date & Time of Evaluation Date of Evaluation: 09/25/17 Time of Evaluation: 16:02 - Subjective Subjective: Patient seen doing well. Still with safety issues but able to ambulate with CS well over 150' at this point no pain in good spirits continue current care Objective - Vital Signs/Intake and Output Vital Signs (last 24 hours): Temp Pulse Resp BP Pulse Ox 97.3 F L 69 21 130/69 100 09/25/17 10:00 09/25/17 10:00 09/25/17 10:00 09/25/17 10:00 09/25/17 10:00 - Medications Medications: Current Medications Amlodipine Besylate (Norvasc) 10 mg PO DAILY [facility] Last Admin: 09/25/17 09:01 Dose: 10 mg Aspirin (Ecotrin) 325 mg PO DAILY [facility] Last Admin: 09/25/17 09:02 Dose: 325 mg Bisacodyl (Dulcolax) 5 mg PO HS [facility] Last Admin: 09/24/17 21:41 Dose: 5 mg Docusate Sodium (Colace) 100 mg PO BID [facility] Last Admin: 09/25/17 09:02 Dose: 100 mg Heparin Sodium (Porcine) (Heparin) 5,000 units SC Q12H [facility] PRN Reason: Protocol Last Admin: 09/25/17 09:05 Dose: 5,000 units Insulin Human Lispro (Humalog) 0 units SC ACHS [facility] PRN Reason: Protocol Last Admin: 09/25/17 12:00 Dose: Not Given Levothyroxine Sodium (Synthroid) 75 mcg PO DAILY@0630 [facility] Last Admin: 09/25/17 06:26 Dose: 75 mcg Magnesium Hydroxide (Milk Of Magnesia) 15 ml PO QID PRN PRN Reason: Constipation Last Admin: 09/22/17 12:34 Dose: 15 ml Metformin HCl (Glucophage) 1,000 mg PO BID [facility] Last Admin: 09/25/17 09:02 Dose: 1,000 mg Nicotine (Nicoderm Cq) 1 patch TD DAILY [facility] Last Admin: 09/25/17 09:07 Dose: 1 patch Pravastatin Sodium (Pravachol) 20 mg PO HS [facility] Last Admin: 09/24/17 21:40 Dose: 20 mg Sitagliptin Phosphate (Januvia) 100 mg PO DAILY [facility] Last Admin: 09/25/17 09:02 Dose: 100 mg Valsartan (Diovan) 320 mg PO DAILY [facility] Last Admin: 09/25/17 09:02 Dose: 320 mg - Labs Labs: 09/21/17 08:03 09/21/17 08:03 PT 11.4 Seconds (9.8-13.1) 09/17/17 05:20 INR 1.0 (0.9-1.2) 09/17/17 05:20 APTT 32.6 Seconds (25.6-37.1) 09/17/17 05:20
[2017-09-25] MEDS: Bisacodyl 5mg EC Tab PO SCH (21:24)
[2017-09-25] MEDS: Pravastatin Sodium 20 MG TAB PO SCH (21:24)
[2017-09-26] MEDS: Levothyroxine 75 MCG TAB PO SCH (06:29)
[2017-09-26] MEDS: Insulin Lispro (humaLOG) 100 Units/ml Inj SC SCH ×4 (06:30→21:00)
[2017-09-26] MEDS: Aspirin 325 mg EC Tablets PO SCH (08:39)
--- NOTE | 2017-09-26 17:10 | CP.PCM.PN ---
Subjective - Date & Time of Evaluation Date of Evaluation: 09/26/17 Time of Evaluation: 17:09 - Subjective Subjective: Patient seen in room doing well denies sob/cp set now for d/c home 09/28/17 he did not want to go to [facility] and family will be working hard to make his discharge safe. continue current care Objective - Vital Signs/Intake and Output Vital Signs (last 24 hours): Temp Pulse Resp BP Pulse Ox 97.5 F L 77 22 116/83 96 09/26/17 09:14 09/26/17 09:14 09/26/17 09:14 09/26/17 09:14 09/26/17 09:14 - Medications Medications: Current Medications Amlodipine Besylate (Norvasc) 10 mg PO DAILY [facility] Last Admin: 09/26/17 08:41 Dose: 10 mg Aspirin (Ecotrin) 325 mg PO DAILY [facility] Last Admin: 09/26/17 08:39 Dose: 325 mg Bisacodyl (Dulcolax) 5 mg PO HS [facility] Last Admin: 09/25/17 21:24 Dose: 5 mg Docusate Sodium (Colace) 100 mg PO BID [facility] Last Admin: 09/26/17 16:52 Dose: 100 mg Heparin Sodium (Porcine) (Heparin) 5,000 units SC Q12H [facility] PRN Reason: Protocol Last Admin: 09/26/17 08:40 Dose: 5,000 units Insulin Human Lispro (Humalog) 0 units SC ACHS [facility] PRN Reason: Protocol Last Admin: 09/26/17 16:51 Dose: Not Given Levothyroxine Sodium (Synthroid) 75 mcg PO DAILY@0630 [facility] Last Admin: 09/26/17 06:29 Dose: 75 mcg Magnesium Hydroxide (Milk Of Magnesia) 15 ml PO QID PRN PRN Reason: Constipation Last Admin: 09/22/17 12:34 Dose: 15 ml Metformin HCl (Glucophage) 1,000 mg PO BID [facility] Last Admin: 09/26/17 16:52 Dose: 1,000 mg Nicotine (Nicoderm Cq) 1 patch TD DAILY [facility] Last Admin: 09/26/17 08:41 Dose: 1 patch Pravastatin Sodium (Pravachol) 20 mg PO HS [facility] Last Admin: 09/25/17 21:24 Dose: 20 mg Sitagliptin Phosphate (Januvia) 100 mg PO DAILY [facility] Last Admin: 09/26/17 08:41 Dose: 100 mg Valsartan (Diovan) 320 mg PO DAILY [facility] Last Admin: 09/26/17 08:39 Dose: 320 mg - Labs Labs: 09/21/17 08:03 09/21/17 08:03 PT 11.4 Seconds (9.8-13.1) 09/17/17 05:20 INR 1.0 (0.9-1.2) 09/17/17 05:20 APTT 32.6 Seconds (25.6-37.1) 09/17/17 05:20
[2017-09-26] MEDS: Pravastatin Sodium 20 MG TAB PO SCH (21:07)
[2017-09-26] MEDS: Bisacodyl 5mg EC Tab PO SCH (21:07)
[2017-09-27] MEDS: Levothyroxine 75 MCG TAB PO SCH (06:19)
[2017-09-27] MEDS: Insulin Lispro (humaLOG) 100 Units/ml Inj SC SCH ×4 (07:00→21:19)
[2017-09-27] MEDS: Aspirin 325 mg EC Tablets PO SCH (08:23)
[2017-09-27] MEDS: Pravastatin Sodium 20 MG TAB PO SCH (21:12)
[2017-09-27] MEDS: Magnesium Hydroxide Susp 30 ml UD PO PRN (21:24)
[2017-09-27] MEDS: Bisacodyl 5mg EC Tab PO SCH (21:26)
[2017-09-27 23:30] VITALS: RESP 20
[2017-09-28] MEDS: Levothyroxine 75 MCG TAB PO SCH (06:38)
[2017-09-28] MEDS: Insulin Lispro (humaLOG) 100 Units/ml Inj SC SCH ×2 (06:44→11:30)
[2017-09-28 08:06] VITALS: BP 117/76; PULSE 74; TEMP 97.9; O2SAT 97
[2017-09-28] MEDS: Aspirin 325 mg EC Tablets PO SCH (08:44)
[2017-09-28] MEDS ORDERED: Insulin Detemir 100 Units/ml Inj SC SCH (09:00)
--- NOTE | 2017-09-28 11:12 | CP.PCM.DIS ---
Provider - Provider Date of Admission: 09/16/17 22:37 Attending physician: Ousmane Garcia Consults: physiatry psychology Time Spent in preparation of Discharge (in minutes): 10 Hospital Course - Lab Results Lab Results: Most Recent Lab Values WBC 11.7 K/uL (4.8-10.8) H 09/21/17 08:03 RBC 4.60 Mil/uL (4.40-5.90) 09/21/17 08:03 Hgb 14.1 g/dL (12.0-18.0) 09/21/17 08:03 Hct 42.1 % (35.0-51.0) 09/21/17 08:03 MCV 91.5 fl (80.0-94.0) 09/21/17 08:03 MCH 30.6 pg (27.0-31.0) 09/21/17 08:03 MCHC 33.5 g/dL (33.0-37.0) 09/21/17 08:03 RDW 14.2 % (11.5-14.5) 09/21/17 08:03 Plt Count 265 K/uL (130-400) 09/21/17 08:03 PT 11.4 Seconds (9.8-13.1) 09/17/17 05:20 INR 1.0 (0.9-1.2) 09/17/17 05:20 APTT 32.6 Seconds (25.6-37.1) 09/17/17 05:20 Sodium 138 mmol/l (132-148) 09/21/17 08:03 Potassium 3.9 MMOL/L (3.6-5.0) 09/21/17 08:03 Chloride 101 mmol/L (98-107) 09/21/17 08:03 Carbon Dioxide 27 mmol/L (22-30) 09/21/17 08:03 Anion Gap 14 (10-20) 09/21/17 08:03 BUN 15 mg/dl (9-20) 09/21/17 08:03 Creatinine 0.8 mg/dl (0.8-1.5) 09/21/17 08:03 Est GFR ( Amer) > 60 09/21/17 08:03 Est GFR (Non-Af Amer) > 60 09/21/17 08:03 POC Glucose (mg/dL) 127 mg/dL (65-110) H 09/28/17 06:43 Random Glucose 153 mg/dL (75-110) H 09/21/17 08:03 Hemoglobin A1c 7.6 % (4.2-6.5) H 09/17/17 05:20 Calcium 9.5 mg/dL (8.4-10.2) 09/21/17 08:03 TSH 3rd Generation 3.53 mIU/ML (0.46-4.68) 09/17/17 05:20 - Hospital Course Hospital Course: 62 yo male with history of DMII, HTN and HLD was admitted at [facility] on 09/12/17 because of right sided weakness and aphasia secondary to acute CVA. He was transferred to Acute Rehab in [facility] for continued management and further therapy. He participated with PT and today will be discharged home 1. CVA Dr Suarez on physiatry consulted participated PT/OT/ST continue ASA and statin 2. HTN BP stable continue Diovan and Norvasc 3. DMII BS relatively controlled continue accuchek with coverage continue Metformin, Januvia, levemir HgA1C: 7.6 4. Hypothyroidism TSH: 3.53 continue Synthroid 5. Tobacco use disorder Nicotine patch Discharge Exam - Head Exam Head Exam: ATRAUMATIC, NORMOCEPHALIC - Eye Exam Eye Exam: EOMI, Normal appearance, PERRL Pupil Exam: NORMAL ACCOMODATION - ENT Exam ENT Exam: Mucous Membranes Moist, Normal Exam - Neck Exam Neck exam: Full Rom, Normal Inspection - Respiratory Exam Respiratory Exam: Clear to PA & Lateral, NORMAL BREATHING PATTERN. absent: Rales, Rhonchi, Wheezes - Cardiovascular Exam Cardiovascular Exam: REGULAR RHYTHM, RRR, +S1, +S2. absent: JVD - GI/Abdominal Exam GI & Abdominal Exam: Normal Bowel Sounds, Soft. absent: Distended, Guarding, Rebound, Tenderness - Rectal Exam Rectal Exam: Deferred - Extremities Exam Extremities exam: normal capillary refill, normal inspection, pedal pulses present - Back Exam Back exam: NORMAL INSPECTION - Neurological Exam Neurological exam: Alert Additional comments: right facial droop right side weakness slurred speech - Psychiatric Exam Psychiatric exam: Normal Affect, Normal Mood - Skin Skin Exam: Dry, Intact, Normal Color, Warm Discharge Plan - Discharge Medications Prescriptions: amLODIPine [Norvasc] 10 mg PO DAILY #30 tab Aspirin [Ecotrin] 325 mg PO DAILY #30 tablet. Docusate [Colace] 100 mg PO BID #60 cap Insulin Detemir [Levemir] 10 units SC DAILY #1 vial Levothyroxine [Synthroid] 75 mcg PO DAILY #30 tab Metformin HCl [Glucophage] 1,000 mg PO BID #60 tablet Simvastatin [Zocor] 10 mg PO HS #30 tablet SITagliptin [Januvia] 100 mg PO DAILY #30 tab Valsartan [Diovan] 320 mg PO DAILY #30 tab - Follow Up Plan Condition: GOOD Disposition: HOME/ ROUTINE Patient education suggested?: Yes Instructions: Patient Safety in the Hospital (GEN), Ischemic Stroke (DC) Additional Instructions: Follow up with PMD Referrals: [facility] [Outside]
--- NOTE | 2017-09-28 14:31 | CP.PCM.PN ---
Subjective - Date & Time of Evaluation Date of Evaluation: 09/28/17 Time of Evaluation: 14:30 - Subjective Subjective: Denies pain excited to be going home today is present nurse going down to the car with them. will have home services the details have been reinforced multiple times Objective - Vital Signs/Intake and Output Vital Signs (last 24 hours): Temp Pulse Resp BP Pulse Ox 97.9 F 74 20 117/76 97 09/28/17 08:06 09/28/17 08:44 09/28/17 08:06 09/28/17 08:44 09/28/17 08:06 - Medications Medications: Current Medications Amlodipine Besylate (Norvasc) 10 mg PO DAILY [facility] Last Admin: 09/28/17 08:44 Dose: 10 mg Aspirin (Ecotrin) 325 mg PO DAILY [facility] Last Admin: 09/28/17 08:44 Dose: 325 mg Bisacodyl (Dulcolax) 5 mg PO HS [facility] Last Admin: 09/27/17 21:26 Dose: Not Given Docusate Sodium (Colace) 100 mg PO BID [facility] Last Admin: 09/28/17 08:44 Dose: 100 mg Heparin Sodium (Porcine) (Heparin) 5,000 units SC Q12H [facility] PRN Reason: Protocol Last Admin: 09/28/17 08:45 Dose: 5,000 units Insulin Detemir (Levemir) 10 units SC DAILY [facility] Last Admin: 09/28/17 08:46 Dose: 10 units Insulin Human Lispro (Humalog) 0 units SC ACHS [facility] PRN Reason: Protocol Last Admin: 09/28/17 06:44 Dose: Not Given Levothyroxine Sodium (Synthroid) 75 mcg PO DAILY@0630 [facility] Last Admin: 09/28/17 06:38 Dose: 75 mcg Magnesium Hydroxide (Milk Of Magnesia) 15 ml PO QID PRN PRN Reason: Constipation Last Admin: 09/27/17 21:24 Dose: 15 ml Metformin HCl (Glucophage) 1,000 mg PO BID [facility] Last Admin: 09/28/17 08:43 Dose: 1,000 mg Nicotine (Nicoderm Cq) 1 patch TD DAILY [facility] Last Admin: 09/28/17 08:45 Dose: 1 patch Pravastatin Sodium (Pravachol) 20 mg PO [facility] Last Admin: 09/27/17 21:12 Dose: 20 mg Sitagliptin Phosphate (Januvia) 100 mg PO DAILY [facility] Last Admin: 09/28/17 08:45 Dose: 100 mg Valsartan (Diovan) 320 mg PO DAILY [facility] Last Admin: 09/28/17 08:45 Dose: 320 mg - Labs Labs: 09/21/17 08:03 09/21/17 08:03 PT 11.4 Seconds (9.8-13.1) 09/17/17 05:20 INR 1.0 (0.9-1.2) 09/17/17 05:20 APTT 32.6 Seconds (25.6-37.1) 09/17/17 05:20
== END 2017-09-28 14:30 | disposition home or self-care (01) | DRG 57 ==
PROVIDERS: ADMIT Internal Medicine; ATTEND Internal Medicine
PROC: F07Z9FZ Gait Training/Functional Ambulation Treatment using Assistive, Adaptive, Supportive or Protective Equipment (ICD-10-PCS; principal; 2017-09-16)
PROC: F06Z3MZ Aphasia Treatment using Augmentative / Alternative Communication Equipment (ICD-10-PCS; 2017-09-16)
PROC: F08Z4FZ Home Management Treatment using Assistive, Adaptive, Supportive or Protective Equipment (ICD-10-PCS; 2017-09-16)
PROC: F07L6FZ Therapeutic Exercise Treatment of Musculoskeletal System - Lower Back / Lower Extremity using Assistive, Adaptive, Supportive or Protective Equipment (ICD-10-PCS; 2017-09-17)
DX: I69.351 Hemiplegia and hemiparesis following cerebral infarction affecting right dominant side (principal); I69.320 Aphasia following cerebral infarction; E11.9 Type 2 diabetes mellitus without complications; E03.9 Hypothyroidism, unspecified; I10 Essential (primary) hypertension; E78.5 Hyperlipidemia, unspecified; F43.22 Adjustment disorder with anxiety; F17.210 Nicotine dependence, cigarettes, uncomplicated